=== PATIENT | male | born 1965 | race Caucasian/White ===

== ENCOUNTER 2019-12-20 18:53 | Emergency (ER) | payer BC ==
[2019-12-20] MEDS ORDERED: fentaNYL 100 MCG/2 ML SDV IVPUSH ONE (19:47)
[2019-12-20 20:07] LABS: ANION GAP 15.8 mEq/L (7-13)
[2019-12-20] MEDS ORDERED: Sodium Chloride 0.9% 1,000 ML IV ONE (20:38)
[2019-12-20] MEDS ORDERED: cefTRIAXone 2 GM in Sodium Chloride 0.9% 100 ML IV ONE (20:38)
[2019-12-20] MEDS ORDERED: HYDROmorphone 1 MG/ML Syringe IVPUSH ONE (20:56)
[2019-12-20] MEDS ORDERED: Acetaminophen 325 MG Tab PO ONE (21:08)
--- NOTE | 2019-12-20 21:22 | EDM.PDOC ---
ED HPI GENERAL MEDICAL PROBLEM - General Chief Complaint: Lower Extremity Injury/Pain Stated Complaint: POSSIBLE BLOOD CLOT LEFT KNEE Time Seen by Provider: 12/20/19 19:20 Source of Information: Reports: Patient, RN, RN Notes Reviewed History Limitations: Reports: No Limitations - History of Present Illness INITIAL COMMENTS - FREE TEXT/NARRATIVE: Patient presents to ER with complaint of left knee pain. Patient states he had a scope done at [facility] approximately 2 weeks ago. The past few days patient has been having some increased pain in the left knee/leg. Patient did see his Ortho surgeon at [facility] today who stated he would like him evaluated for a DVT. Patient was set up to go to ER at [facility], but was told he could not have an ultrasound until tomorrow. Patient came home and decided to come to the ER here as his pain was increasing. Patient has pain and redness as well as drainage anteriorly, no pain posteriorly. Homans sign ne gative. Patient denies fever, but admits to chills from time to time. Denies nausea, vomiting, diarrhea, chest pain, shortness of breath. Onset: Gradual Left Knee Pain Score (Numeric/FACES): 7 - Related Data Allergies Allergy/AdvReac Type Severity Reaction Status Date / Time No Known Allergies Allergy Verified 12/20/19 19:38 Home Meds: Home Meds Acetaminophen/HYDROcodone [[place] 325-10 MG] 1 tab PO ASDIRECTED 12/20/19 [History] atorvaSTATin Calcium [Atorvastatin Calcium] 40 mg PO DAILY 12/20/19 [History] lisinopriL [Lisinopril] 10 mg PO DAILY 12/20/19 [History] metFORMIN HCl [Metformin HCl] 500 mg PO BID 12/20/19 [History] Past Medical History - Past Health History Medical/Surgical History: Denies Medical/Surgical History Cardiovascular History: Reports: High Cholesterol, Hypertension Musculoskeletal History: Reports: Other (See Below) Endocrine/Metabolic History: Reports: Diabetes, Type II - Past Surgical History Musculoskeletal Surgical History: Reports: Arthroscopic Knee Social & Family History - Family History Family Medical History: Noncontributory - Tobacco Use Smoking Status *Q: Former Smoker Years of Tobacco use: 10 Packs/Tins Daily: 1 Used Tobacco, but Quit: Yes Month/Year Tobacco Last Used: 1999 - Caffeine Use Caffeine Use: Reports: Coffee - Recreational Drug Use Recreational Drug Use: No Review of Systems - Review of Systems Review Of Systems: Comprehensive ROS is negative, except as noted in HPI. ED EXAM, GENERAL - Physical Exam Exam: See Below Exam Limited By: No Limitations General Appearance: Alert, WD/WN, Moderate Distress Eye Exam: Bilateral Eye: EOMI, Normal Inspection Ears: Normal External Exam, Hearing Grossly Normal Nose: Normal Inspection Throat/Mouth: Normal Inspection, Normal Voice, No Airway Compromise Head: Atraumatic, Normocephalic Neck: Normal Inspection, Supple, Non-Tender, Full Range of Motion Respiratory/Chest: No Respiratory Distress, Lungs Clear, Normal Breath Sounds, No Accessory Muscle Use, Chest Non-Tender Cardiovascular: Normal Peripheral Pulses, Regular Rate, Rhythm, No Edema, No Gallop, No JVD, No Murmur, No Rub Peripheral Pulses: 2+: Radial (L), Radial (R), Popliteal (L), Popliteal (R), Dorsalis Pedis (L), Dorsalis Pedis (R) GI/Abdominal: Normal Bowel Sounds, Soft, Non-Tender (Male) Exam: Deferred Rectal (Males) Exam: Deferred Back Exam: Normal Inspection, Full Range of Motion, NT Extremities: Joint Swelling (left knee), Leg Pain (left), Limited Range of Motion (left knee), Increased Warmth (left knee, left thigh), Redness (left knee upward to the anterior thigh). No: Shivani's Sign Neurological: Alert, Oriented, CN II-XII Intact, Normal Cognition, Normal Reflexes, No Motor/Sensory Deficits Psychiatric: Normal Mood, Flat Affect Skin Exam: Warm, Dry, Ecchymosis (left calf), Erythema (left knee, left thigh), Increased Warmth (left knee, left thigh), Wound/Incision (Incision site of scope draining small amount of purulent drainage) Lymphatic: No Adenopathy Course - Vital Signs Last Recorded V/S: Last Vital Signs Temp 102.6 F H 12/20/19 22:27 Pulse 125 H 12/20/19 22:23 Resp 24 H 12/20/19 22:23 BP 128/52 L 12/20/19 22:23 Pulse Ox 95 12/20/19 22:23 - Orders/Labs/Meds Orders: Active Orders 24 hr Category Date Time Status CULTURE BLOOD [BC] Stat Lab 12/20/19 22:23 Ordered CULTURE BLOOD [BC] Stat Lab 12/20/19 22:23 Ordered CULTURE WOUND [RM] Urgent Lab 12/20/19 19:13 Received REFLEX LACTIC ACID YES OR NO [CHEM] Routine Lab 12/20/19 20:01 Received Blood Culture x2 Reflex Set [OM.PC] Stat Oth 12/20/19 22:23 Ordered Labs: Laboratory Tests 12/20/19 12/20/19 12/20/19 Range/Units 19:23 19:23 19:23 WBC 12.4 H (5.0-10.0) 10^3/uL RBC 5.27 (4.6-6.2) 10^6/uL Hgb 15.4 (14.0-18.0) g/dL Hct 44.4 (40.0-54.0) % MCV 84.3 (80-100) fL MCH 29.2 (27.0-34.0) pg MCHC 34.7 (33.0-35.0) g/dL Plt Count 175 (150-450) 10^3/uL Neut % (Auto) 90.4 H (42.2-75.2) % Lymph % (Auto) 4.4 L (20.5-50.1) % Hooker % (Auto) 5.0 (2-8) % Eos % (Auto) 0.0 L (1.0-3.0) % Baso % (Auto) 0.2 (0.0-1.0) % D-Dimer, Quantitative 336 (0-400) ng/mL Sodium 130 L (136-145) mmol/L Potassium 3.8 (3.5-5.1) mmol/L Chloride 93 L (98-107) mmol/L Carbon Dioxide 25 (21-32) mmol/L Anion Gap 15.8 H (7-13) mEq/L BUN 21 H (7-18) mg/dL Creatinine 1.32 H (0.70-1.30) mg/dL Est Cr Clr Drug Dosing 78.54 mL/min Estimated GFR (MDRD) 57 BUN/Creatinine Ratio 15.9 (No establ ref range) Glucose 273 H (74-99) mg/dL Lactic Acid (0.4-2.0) mmol/L Calcium 8.9 (8.5-10.1) mg/dL Total Bilirubin 1.4 H (0.2-1.0) mg/dL AST 36 (15-37) U/L ALT 57 (16-63) U/L Alkaline Phosphatase 105 (46-116) U/L Total Protein 7.9 (6.4-8.2) g/dL Albumin 4.2 (3.4-5.0) g/dL Globulin 3.7 Albumin/Globulin Ratio 1.1 08/17/20 Range/Units 19:23 WBC (5.0-10.0) 10^3/uL RBC (4.6-6.2) 10^6/uL Hgb (14.0-18.0) g/dL Hct (40.0-54.0) % MCV (80-100) fL MCH (27.0-34.0) pg MCHC (33.0-35.0) g/dL Plt Count (150-450) 10^3/uL Neut % (Auto) (42.2-75.2) % Lymph % (Auto) (20.5-50.1) % Hooker % (Auto) (2-8) % Eos % (Auto) (1.0-3.0) % Baso % (Auto) (0.0-1.0) % D-Dimer, Quantitative (0-400) ng/mL Sodium (136-145) mmol/L Potassium (3.5-5.1) mmol/L Chloride (98-107) mmol/L Carbon Dioxide (21-32) mmol/L Anion Gap (7-13) mEq/L BUN (7-18) mg/dL Creatinine (0.70-1.30) mg/dL Est Cr Clr Drug Dosing mL/min Estimated GFR (MDRD) BUN/Creatinine Ratio (No establ ref range) Glucose (74-99) mg/dL Lactic Acid 2.5 H* (0.4-2.0) mmol/L Calcium (8.5-10.1) mg/dL Total Bilirubin (0.2-1.0) mg/dL AST (15-37) U/L ALT (16-63) U/L Alkaline Phosphatase (46-116) U/L Total Protein (6.4-8.2) g/dL Albumin (3.4-5.0) g/dL Globulin Albumin/Globulin Ratio Meds: Medications Discontinued Medications Generic Name Dose Route Start Last Admin Trade Name Marisol PRN Reason Stop Dose Admin Acetaminophen 650 mg 12/20/19 21:08 12/20/19 21:17 Tylenol PO 12/20/19 21:09 650 mg NOW ONE Administration Fentanyl 75 mcg 12/20/19 19:47 12/20/19 19:53 Sublimaze IVPUSH 12/20/19 19:48 75 mcg ONETIME ONE Administration Hydromorphone HCl 1 mg 12/20/19 20:56 12/20/19 21:03 Dilaudid IVPUSH 12/20/19 20:57 1 mg ONETIME ONE Administration Sodium Chloride 1,000 mls @ 999 mls/hr 12/20/19 20:38 12/20/19 20:45 Normal Saline IV 12/20/19 21:38 999 mls/hr .BOLUS ONE Administration Ceftriaxone Sodium 2 gm/ 100 mls @ 200 mls/hr 12/20/19 20:38 12/20/19 20:47 Sodium Chloride IV 12/20/19 21:07 200 mls/hr ONETIME ONE Administration Ibuprofen 800 mg 12/20/19 22:23 12/20/19 22:27 Motrin PO 12/20/19 22:24 800 mg ONETIME ONE Administration - Radiology Interpretation Free Text/Narrative:: Venous Doppler left lower extremity: PROCEDURE INFORMATION: Exam: US Duplex Left Lower Extremity Veins, Limited Exam date and time: 12/20/2019 9:37 PM Age: 54 years old Clinical indication: Edema, localized; Lower extremity, left; Prior surgery; Surgery date: <1 month; Surgery type: Scope 2 weeks ago; Additional info: Redness, swelling, recent s cope TECHNIQUE: Imaging protocol: Real-time Duplex ultrasound of the Left Lower Extremity with 2-D styles scale, color Doppler flow and spectral waveform analysis with image documentation. Limited exam focused on the left lower extremity veins. COMPARISON: No relevant prior studies available. FINDINGS: Left deep veins: Unremarkable. The common femoral, femoral, proximal profunda femoral and popliteal veins are patent without thrombus. Normal Doppler waveforms. Normal compressibility and/or augmentation response. Left superficial veins: Unremarkable. Saphenofemoral junction is patent without thrombus. Soft tissues: Unremarkable. IMPRESSION: No evidence of deep vein thrombosis. Thank you for allowing us to participate in the care of your patient. Dictated and Authenticated by: Derrick Proctor MD 12/20/2019 10:09 PM Central Time ([place] & [place]) See rad report - Re-Assessments/Exams Free Text/Narrative Re-Assessment/Exam: 12/20/19 21:25 Discussed patient case with Dr. Avilez, Ortho surgeon who performed scope of the knee. He states he would like the patient to have an ultrasound to rule out DVT. This was ordered and results will be called back to him, and a plan will be made at that time. 12/20/19 22:33 Discussed ultrasound results with Dr. Avilez who states he would like to see the patient at [facility]. Patient will travel to [place] to [facility] with his per POV. Departure - Departure Time of Disposition: 22:34 Disposition: DC/Tfer to [facility] 02 Condition: Fair Clinical Impression: Wound infection - Discharge Information *PRESCRIPTION DRUG MONITORING PROGRAM REVIEWED*: No *COPY OF PRESCRIPTION DRUG MONITORING REPORT IN PATIENT ROSALVA: No Forms: ED Department Discharge, Interfacility Transfer [facility] Sepsis Event Note (ED) - Evaluation Sepsis Screening Result: No Definite Risk - Focused Exam Vital Signs: Vital Signs Temp Temp Temp Pulse Resp BP Pulse Ox 12/20/19 22:27 102.6 F H 12/20/19 22:23 102.6 F H 125 H 24 H 128/52 L 95 12/20/19 21:55 100.5 F 12/20/19 21:19 126 H 24 H 96 12/20/19 21:09 100.9 F H 120 H 24 H 147/73 H 97 12/20/19 20:51 98.6 F 120 H 18 123/85 98 12/20/19 19:57 98.9 F 117 H 16 110/63 97 12/20/19 19:10 98.8 F 123 H 14 100/48 L 98 - My Orders Last 24 Hours: My Active Orders 12/20/19 19:13 CULTURE WOUND [RM] Urgent 12/20/19 20:01 REFLEX LACTIC ACID YES OR NO [CHEM] Routine 12/20/19 22:23 CULTURE BLOOD [BC] Stat CULTURE BLOOD [BC] Stat Blood Culture x2 Reflex Set [OM.PC] Stat - Assessment/Plan Last 24 Hours: My Active Orders 12/20/19 19:13 CULTURE WOUND [RM] Urgent 12/20/19 20:01 REFLEX LACTIC ACID YES OR NO [CHEM] Routine 12/20/19 22:23 CULTURE BLOOD [BC] Stat CULTURE BLOOD [BC] Stat Blood Culture x2 Reflex Set [OM.PC] Stat
--- NOTE | 2019-12-20 22:10 | US ---
PROCEDURE INFORMATION: Exam: US Duplex Left Lower Extremity Veins, Limited Exam date and time: 12/20/2019 9:37 PM Age: 54 years old Clinical indication: Edema, localized; Lower extremity, left; Prior surgery; Surgery date: <1 month; Surgery type: Scope 2 weeks ago; Additional info: Redness, swelling, recent scope TECHNIQUE: Imaging protocol: Real-time Duplex ultrasound of the Left Lower Extremity with 2-D styles scale, color Doppler flow and spectral waveform analysis with image documentation. Limited exam focused on the left lower extremity veins. COMPARISON: No relevant prior studies available. FINDINGS: Left deep veins: Unremarkable. The common femoral, femoral, proximal profunda femoral and popliteal veins are patent without thrombus. Normal Doppler waveforms. Normal compressibility and/or augmentation response. Left superficial veins: Unremarkable. Saphenofemoral junction is patent without thrombus. Soft tissues: Unremarkable. IMPRESSION: No evidence of deep vein thrombosis.
[2019-12-20] MEDS ORDERED: Ibuprofen 800 MG Tab PO ONE (22:23)
== END 2019-12-20 22:46 ==
LOC: DL.ED 18:53
DX: T81.41XA Infection following a procedure, superficial incisional surgical site, initial encounter (principal); I10 Essential (primary) hypertension; E78.00 Pure hypercholesterolemia, unspecified; E11.9 Type 2 diabetes mellitus without complications; Z87.891 Personal history of nicotine dependence; Z79.84 Long term (current) use of oral hypoglycemic drugs; Z79.899 Other long term (current) drug therapy
CPT/HCPCS: 36415; 80053; 83605; 85025; 85379; 87040; 87070; 87077; 87186; 93971; 96361; 96365; 96375; 99284; 99285-25; A9270-GY; J0696; J1170; J3010; J7030; J7050

== ENCOUNTER 2021-10-23 06:19 | Day surgery (SDC) | payer BC ==
[~2021-10-23 06:19] MED LIST: Dextrose 5%-0.45% NaCl 1,000 ML IV SCH; Midazolam 1 MG/ML 2 ML SDV ONE; Sodium Chloride 0.9% 10 ML Syringe FLUSH PRN; Sodium Chloride 0.9% 10 ML Syringe FLUSH SCH; fentaNYL 100 MCG/2 ML SDV ONE
[2021-10-23] MEDS ORDERED: Midazolam 1 MG/ML 2 ML SDV IV ONE ×7 (06:20→07:39)
[2021-10-23] MEDS ORDERED: fentaNYL 100 MCG/2 ML SDV IV ONE ×3 (06:20→07:27)
== END 2021-10-23 09:50 | disposition home or self-care (01) ==
LOC: DL.ENDO 06:19
PROVIDERS: ATTEND Internal Medicine Gastroenterology
DX: R19.5 Other fecal abnormalities (principal); E66.09 Other obesity due to excess calories; I48.0 Paroxysmal atrial fibrillation; I10 Essential (primary) hypertension; E78.5 Hyperlipidemia, unspecified; E11.9 Type 2 diabetes mellitus without complications; K43.9 Ventral hernia without obstruction or gangrene; D64.9 Anemia, unspecified; Z98.890 Other specified postprocedural states; Z68.35 Body mass index [BMI] 35.0-35.9, adult
CPT/HCPCS: 45378; J2250; J3010; J7042